=== PATIENT | female | born 1985 | race Caucasian/White ===

== ENCOUNTER 2021-04-29 15:00 | Outpatient (RCR) | payer BC, SELFPAY ==
[2021-04-29 15:10] VITALS: BMI 35.9
[2021-04-29 15:11] VITALS: BMI 35.9
== END 2021-07-15 10:54 | disposition home or self-care (01) ==
LOC: ANHDMC 15:00
PROVIDERS: PCP Family Medicine; Visit Provider Obstetrics & Gynecology
DX: O24.419 Gestational diabetes mellitus in pregnancy, unspecified control (principal); Z3A.00 Weeks of gestation of pregnancy not specified; Z71.3 Dietary counseling and surveillance; Z71.89 Other specified counseling
CPT/HCPCS: 97802; G0108

== ENCOUNTER 2021-06-07 21:32 | Observation (INO) | payer BC, SELFPAY ==
[2021-06-07 21:36] VITALS: BP 137/79; PULSE 93; RESP 20; TEMP 36.2; O2SAT 97
--- NOTE | 2021-06-08 00:26 | ED.GENADULT ---
HPI - General Adult General Chief complaint: Unspecified Stated complaint: hemrrhoid? Time Seen by Provider: 06/07/21 23:53 History of Present Illness HPI narrative: Patient a 35-year-old female presents the emergency department with chief complaint of hemorrhoidal pain. Patient reports she is 36 weeks and having pain and a palpable hemorrhoid present in her rectal area. Patient states that it is tender to touch reports has been using topical creams and pads as well as salt water baths and sitz bath's. The patient states that she attempted to place a hemorrhoid suppository and was unable to pass the suppository. Patient states he is also been having abdominal cramping and abdominal pain. Related Data Allergies Allergy/AdvReac Type Severity Reaction Status Date / Time No Known Allergies Allergy Verified 06/07/21 21:39 Review of Systems Review of Systems: A 10 system review of systems was completed on the patient and is negative except for what is stated in the HPI. Nursing and ancillary documentation was reviewed. [facility] Social History Social History Spiritual care concerns: No Exam Narrative: GENERAL: Well-appearing, well-nourished, and in no acute distress. HEAD: Normocephalic, atraumatic. EYES: PERRLA and EOMI. ENT: Nares clear, no rhinorrhea or epistaxis. Mucous membranes moist. NECK: Supple. CHEST: Clear to auscultation. No respiratory distress. HEART: Regular rate and rhythm. No murmur heard. Normal peripheral pulses. ABDOMEN: Soft, nontender, nondistended, normal active bowel sounds. : There is a large external hemorrhoid present. It is not thrombosed at this time EXTREMITIES: Normal range of motion. No edema. SKIN: Warm, dry, no rash. NEURO: No focal deficits. Alert and oriented x3. PSYCH: Normal mood and affect. Course Vital Signs Vital signs: Vital Signs Temperature 36.2 C L 06/07/21 21:36 Pulse Rate 93 06/07/21 21:36 Respiratory Rate 20 06/07/21 21:36 Blood Pressure 137/79 06/07/21 21:36 Pulse Oximetry 97 06/07/21 21:36 Temperature 36.2 C L 06/07/21 21:36 Pulse Rate 93 06/07/21 21:36 Respiratory Rate 20 06/07/21 21:36 Blood Pressure 137/79 06/07/21 21:36 Pulse Oximetry 97 06/07/21 21:36 Medical Decision Making Vital Signs Vital Signs: Vital Signs Temperature 36.2 C L 06/07/21 21:36 Pulse Rate 93 06/07/21 21:36 Respiratory Rate 20 06/07/21 21:36 Blood Pressure 137/79 06/07/21 21:36 Pulse Oximetry 97 06/07/21 21:36 Temperature 36.2 C L 06/07/21 21:36 Pulse Rate 93 06/07/21 21:36 Respiratory Rate 20 06/07/21 21:36 Blood Pressure 137/79 06/07/21 21:36 Pulse Oximetry 97 06/07/21 21:36 Discharge Plan Discharge Clinical Impression: External hemorrhoid Patient Disposition: Home, Self-Care Condition: Stable Instructions: Antibiotic Form, Hemorrhoids (ED) Prescriptions: New Proctofoam HC 1-1 % foam 1 applic RECTAL QID PRN (Reason: hemorrhoids) Qty: 10 RF: 0 Follow-up/Referrals: Fernandez Hollins MD [Physician] - Sensintaffar,MD Osman [Primary Care Provider] - Time of Disposition: 00:29
[2021-06-08 00:47] VITALS: BP 99/60; PULSE 74; RESP 16; O2SAT 97
[2021-06-08 01:00] VITALS: BP 118/62; PULSE 74
--- NOTE | 2021-06-08 01:16 | OBADM ---
This patient, Hanna Salvador, admitted to the OB room OB Post 117 at 0046 for observation. Patient/family oriented to hospital policies and general routines including ID bracelet, bed and alarms, visiting hours, pain management, procedures, bathroom and other care routines, personal items, smoking policy, room service/diet, and visiting hours. Patient/Family are encouraged to report perceived risks to care and to ask questions if they do not understand what they are told or what they should do.
[2021-06-08 01:42] LABS: Add Urine Microscopic? YES; Appearance Urine Cloudy (Clear); Bacteria Urine Trace /hpf; Bilirubin Urine Negative (Negative); Blood Urine Negative (Negative); Color Urine Yellow (Yellow); Glucose Urine UA Negative (Negative); Ketones Urine Negative (Negative); Leukocyte Esterase Ur Negative LEU/UL (Negative); Nitrate Urine Negative (Negative); Protein Urine Negative (Negative); RBC Urine 0-2 /hpf (0-2); Specific Grav Ur 1.019 (1.001-1.035); Urobilinogen Urine Negative mg/dL (<2.0); WBC Urine 0-3 /hpf
--- NOTE | 2021-06-08 01:55 | PC.NURSE ---
Spoke with Dr. Pichardo at 0147 about patient status. Gave Dr. Pichardo update on patient monitor of contractions that can be counted as irritability, soft to palpation, heart tones with baseline of 125 and moderate variability with accels. Informed Dr. Pichardo of patient urine results. Per Dr. Pichardo patient is okay to be discharged and to call office Wednesday morning to make an appointment and to send patient home with a prescription of Tylenol 3 Q6 hours for a total of 8 tablets.
[2021-06-08] MEDS: ACETAMINOPHEN/CODEINE (*CRX) 300/30 MG TABLET 1 TAB PO (02:27)
--- NOTE | 2021-06-08 08:38 | PM.OBTRLD ---
OB - Triage/Final Diagnosis Visit Information Comments/Additional reasons for admission: I have assessed the risk for this patient, Hanna Salvador, and determined that she would benefit from observation care. Evaluation Laboratory results: Laboratory Tests 06/08/21 01:19 Urine Color Yellow Urine Appearance Cloudy H Urine pH 6.0 Ur Specific [place] 1.019 Urine Protein Negative Urine Glucose (UA) Negative Urine Ketones Negative Ur Blood (Man) Negative Urine Nitrate Negative Urine Bilirubin Negative Urine Urobilinogen Negative Leukocyte Esterase Rfl Negative Urine RBC 0-2 Urine WBC 0-3 Urine Bacteria Trace Vital signs: Vital Signs - 24 hr 06/07/21 21:36 06/08/21 00:47 06/08/21 01:00 Temperature 36.2 C L Pulse Rate 93 74 74 Respiratory Rate 20 16 Blood Pressure 137/79 99/60 L 118/62 Pulse Oximetry 97 97 Final Diagnosis (1) External hemorrhoid: Code(s): K64.4 - Residual hemorrhoidal skin tags Status: Acute
== END 2021-06-08 03:05 | disposition home or self-care (01) ==
LOC: ANHED 06-08 00:29 → ANHOBPP 06-08 00:57
PROVIDERS: Admitting Provider Obstetrics & Gynecology; Emergency Provider Emergency Medicine; PCP Family Medicine; Visit Provider Obstetrics & Gynecology
DX: O22.43 Hemorrhoids in pregnancy, third trimester (principal); Z3A.36 36 weeks gestation of pregnancy
CPT/HCPCS: 81001; 99285; A9270; G0378; G0379

== ENCOUNTER 2021-07-01 12:34 | Outpatient (RCR) | payer BC, SELFPAY ==
[2021-05-30 11:03] VITALS: BP 117/79; PULSE 98
[2021-06-03 11:15] VITALS: BP 116/79; PULSE 89
--- NOTE | 2021-06-10 14:20 | PC.NURSE ---
Called Dr. Castellanos with pt status. Variable decelerations noted. Orders received. If BPP and JAZMIN WNL, may D/C home.
[2021-06-10 15:02] VITALS: BP 110/75; PULSE 83
[2021-06-13 12:29] VITALS: BP 113/72; PULSE 108
[2021-06-17 12:44] VITALS: BP 118/74; PULSE 90
[2021-06-17 13:23] LABS: Hematocrit 34.4 % (37.0-47.0); Hemoglobin 11.1 g/dL (12.0-15.0)
[2021-06-17 13:53] LABS: HIV 1/2 Ab P24 Ag Result Negative (Negative)
[2021-06-20 11:13] VITALS: BP 110/75; PULSE 76
[2021-06-24 11:47] VITALS: BP 120/75; PULSE 82
[2021-06-27 11:05] VITALS: BP 128/88; PULSE 92
--- NOTE | ~2021-07-01 | US_ITS ---
EXAMINATION: US OB follow up w BPP DATE: 06/13/2021 12:06 INDICATION: Evaluate well being and estimated weight TECHNIQUE: Real-time transabdominal obstetric ultrasound. FINDINGS: Comparison to 06/10/2021 and 06/06/2021 There is a single living fetus in vertex presentation. The placenta is fundal without placenta previ a. cardiac activity and movement is noted with a heart rate of 119 beats per minute. T he amniotic fluid volume is normal. JAZMIN measures 19.7 cm. The following biometric data were obtained: BPD: 90mm corresponds to gestational age 36 weeks 3 days. Head circumference: 323mm corresponds to gestational age 36 weeks 3 days. Abdominal circumference: 332mm corresponds to gestational age 37 weeks 1 days. Femur length: 69mm corresponds to gestational age 35 weeks 4 days. Estimated weight: 2971grams +/- 45grams which is 57th percentile when estimated date of confine ment 07/08/2021 used.] BIOPHYSICAL PROFILE breathin out of 2. movement: 2 out of 2. tone: 2 out of 2. Amniotic fluid pocket: 2 out of 2. Biophysical profile score: 8 out of 8. IMPRESSION: 1. Single living intrauterine in vertex presentation with an estimated gestational age of 36 weeks 3 days with EDC of 07/08/2021. 2. Estimated weight 2971 g plus/-445 (57th percentile). 3: Biophysical profile score of 06/01. Reviewed, dictated and finalized at location A. IMPRESSION: 1. Single living intrauterine in vertex presentation with an estimat ed gestational age of 36 weeks 3 days with EDC of 07/08/2021. 2. Estimated weight 2971 g plus/-445 (57th percentile). 3: Biophysical profile score of 06/01.
--- NOTE | ~2021-07-01 | US_ITS ---
EXAMINATION: US OB BPP wo non-stress DATE: 05/30/2021 11:23 INDICATION: Gestational diabetes, third trimester TECHNIQUE: Real-time pelvic ultrasound was performed. The interpreting radiologist was not present fo r the study. COMPARISON: None. FINDINGS: There is a single living fetus in vertex presentation. The placenta is anterior. heart rate is 139 beats per minute (bpm). Biophysical profile performed by the technologist: breathing (30 sec sustained breathing in 30 minutes): 2 out of 2 movement (3 gross body movements in 30 minutes): 2 out of 2 tone (one episode of xdpcbde-ryhoxxarj-hbkngfa limb movement): 2 out of 2 Amniotic fluid pocket (2 cm): 2 out of 2 Total score: 8 out of 8 IMPRESSION: 1. Single living fetus in vertex presentation. 2. Biophysical profile 8 out of 8. Reviewed, dictated and finalized at location A.
--- NOTE | ~2021-07-01 | US_ITS ---
EXAMINATION: US OB limited w BPP DATE: 06/10/2021 14:56 INDICATION: cardiac decelerations during third trimester of . TECHNIQUE: Real-time pelvic ultrasound was performed. The interpreting radiologist was not present fo r the study. COMPARISON: 06/06/2021 FINDINGS: There is a single living fetus in vertex presentation. The placenta is anterior and not low-lying. F etal heart rate is 129 beats per minute (bpm). Normal amniotic fluid index of 21.0 cm (5th%-95%: 7.7- 84.9 cm at 36 weeks estimated gestational age). Biophysical profile performed by the technologist: breathing (30 sec sustained breathing in 30 minutes): 2 out of 2 movement (3 gross body movements in 30 minutes): 2 out of 2 tone (one episode of vzyjcgw-qtfligofq-zxudjfp limb movement): 2 out of 2 Amniotic fluid pocket (2 cm): 2 out of 2 Total score: 8 out of 8 IMPRESSION: 1. Single living fetus in vertex presentation with heart rate of 129 bpm. 2. Biophysical profile 8 out of 8. 3. Normal amniotic fluid index of 21.0 cm. Reviewed, dictated and finalized at location A.
--- NOTE | ~2021-07-01 | US_ITS ---
EXAMINATION: US OB follow up w BPP DATE: 06/27/2021 11:56 INDICATION: Gestational diabetes, third trimester TECHNIQUE: Real-time pelvic ultrasound was performed. The interpreting radiologist was not present fo r the study. COMPARISON: 06/20/2021 FINDINGS: There is a single living fetus in vertex presentation. The placenta is anterior. heart rate is 138 beats per minute (bpm). The amniotic fluid index is 14.9 cm. Biophysical profile performed by the technologist: breathing (30 sec sustained breathing in 30 minutes): 2 out of 2 movement (3 gross body movements in 30 minutes): 2 out of 2 tone (one episode of lqzeyxq-pvchpieez-iflcyyo limb movement): 2 out of 2 Amniotic fluid pocket (2 cm): 2 out of 2 Total score: 8 out of 8 The following biometric data were obtained: Biparietal diameter (BPD): 9.2 cm; head circumference (HC): 34.1 cm; abdominal circumference (AC): 7. 3 cm; femur length (FL): 4.5 cm. These measurements are concordant. Estimated weight is 3967 g +/- 595 g, which correlates with the 94th percentile when 07/08/2021 is used as estimated date of delivery. As single measurements, these parameters are each equal to the following estimated gestational ages w ith ranges of +/- 2 standard deviations: BPD: 37 weeks 4 days ( 34 weeks 3 days - 40 weeks 6 days). HC: 39 weeks 3 days ( 36 weeks 5 days - 42 weeks 0 days). AC: 41 weeks 2 days ( 38 weeks 2 days - 44 weeks 2 days). FL: 38 weeks 4 days ( 35 weeks 3 days - 41 weeks 5 days). estimated gestational age based solely on measurements from this exam is 39 weeks 2 days +/- 2 weeks 5 days. IMPRESSION: 1. Single living fetus in vertex presentation. 2. Biophysical profile 8 out of 8. 3. Estimated weight is 3967 g +/- 595 g, which correlates with the 94th percentile when 07/08/20 21 is used as estimated date of delivery. 4. Normal amniotic fluid index. Reviewed, dictated and finalized at location A. IMPRESSION: 1. Single living fetus in vertex presentation. 2. Biophysical profile 8 out of 8. 3. Estimated weight is 3967 g +/- 595 g, which correlates with the 94th p ercentile when 07/08/2021 is used as estimated date of delivery. 4. Normal amniotic fluid index.
--- NOTE | ~2021-07-01 | US_ITS ---
EXAMINATION: US OB follow up w BPP EXAM DATE: 06/20/2021 11:34 INDICATION: Growth scan and BPP. Gestational diabetes. 3rd trimester. TECHNIQUE: Pelvic obstetrical transabdominal sonogram was performed by a technologist. There are mu ltiple grayscale and Doppler images available for interpretation. Comparison is made to prior examina tion from 06/15/2021. FINDINGS: There is a single fetus identified in vertex presentation with a heart rate of 130 beats pe r minute. The placenta is located in the anterior position. There is no sonographic evidence of retr oplacental hemorrhage identified. The amniotic fluid index is 15.2 centimeters, which is normal. BIOMETRIC DATA: Biparietal diameter (BPD): 8.7 cm --------------> 35 weeks 0 days. Head circumference (HC): 30.5 cm ---------------> 33 weeks 6 days. Abdominal circumference (AC): 35.4 cm ---------> 39 weeks 2 days. Femur length (FL): 7.3 cm ------------------------> 37 weeks 4 days. These measurements are discordant, with elevated FL/HC ratio and decreased HC/AC ratio. HC/AC ratio is 0.86 (The 5th -- 95th percentile range is 0.92-1.07. Estimated weight is 3292 g +/- 494 g. This is the 67th percentile when the currently reported clinical gestation age 37 weeks 3 days, clinical estimated date of delivery (SKYLAR-OPE) 07/08/2021 is us ed. estimated gestational age based on measurements from this exam is 36 weeks 3 days, with an estimated date of delivery (SKYLAR-AUA) 07/15. BIOPHYSICAL PROFILE (performed by the technologist) breathing (30 sec sustained breathing in 30 minutes): 2 out of 2 movement (3 gross body movements in 30 minutes): 2 out of 2 tone (one episode of qknpkyx-zbjxwtori-dbbueaj limb movement): 2 out of 2 Amniotic fluid pocket (2 cm): 2 out of 2 Total score: 8 out of 8 IMPRESSION: 1. Single fetus with heart rate of 130 bpm. 2. Normal biophysical profile score of 8 out of 8. 3. Normal amniotic fluid index 15 cm. 4. Decreased HC/AC and increased FL/HC ratios. Please note that on prior study last week the head circumference measurement was 32.3 cm, and the bip arietal diameter was 9.0 cm, both larger than on this examination. Could be that there was some varia tion in position or difficulties in obtaining accurate head measurement on this examination. Reviewed, dictated and finalized at location A. IMPRESSION: 1. Single fetus with heart rate of 130 bpm. 2. Normal biophysical profile score of 8 out of 8. 3. Normal amniotic fluid index 15 cm. 4. Decreased HC/AC and increased FL/HC ratios. Please note that on prior study last week the head circumference measurement wa s 32.3 cm, and the biparietal diameter was 9.0 cm, both larger than on this exa mination. Could be that there was some variation in position or difficulties in obtaining accurate head measurement on this examination.
--- NOTE | ~2021-07-01 | US_ITS ---
EXAMINATION: US OB follow up w BPP DATE: 06/06/2021 11:57 INDICATION: Gestational diabetes. Third trimester. TECHNIQUE: Real-time ultrasound of the pelvis was performed. COMPARISON: ultrasound 05/30/21 FINDINGS: There is a single living fetus in vertex presentation. The placenta is anterior, 7.5 cm from the cer vix. heart rate is 136 beats per minute (bpm). The amniotic fluid index is 15.8 cm, which is no rmal. The following biometric data were obtained: Biparietal diameter (BPD): 8.8 cm; head circumference (HC): 33.0 cm; abdominal circumference (AC): 34 .4 cm; femur length (FL): 7.0 cm. These measurements are concordant. Estimated weight is 3175 g +/- 476 g, which correlates with 92nd percentile when 07/08/21 is use d as estimated date of delivery. As single measurements, these parameters are each equal to the following estimated gestational ages: BPD: 35 weeks 5 days. HC: 37 weeks 4 days. AC: 38 weeks 2 days. FL: 35 weeks 5 days. estimated gestational age based solely on measurements from this exam is 36 weeks 6 days +/- 2 weeks 4 days. Biophysical profile performed by the technologist: breathing (30 sec sustained breathing in 30 minutes): 2 out of 2 movement (3 gross body movements in 30 minutes): 2 out of 2 tone (one episode of hmxymhu-drlxtdxsk-mxiuylc limb movement): 2 out of 2 Amniotic fluid pocket (2 cm): 2 out of 2 Total score: 8 out of 8 IMPRESSION: 1. Single living fetus in vertex presentation. 2. Large for gestational age. Estimated weight is 3175 g +/- 476 g, which correlates with 92nd percentile when 07/08/21 is used as estimated date of delivery. 3. Biophysical profile 8 out of 8. Reviewed, dictated and finalized at location A. IMPRESSION: 1. Single living fetus in vertex presentation. 2. Large for gestational age. Estimated weight is 3175 g +/- 476 g, whic h correlates with 92nd percentile when 07/08/21 is used as estimated date of del huy. 3. Biophysical profile 8 out of 8.
[2021-07-01 13:15] VITALS: BP 113/72; PULSE 92
== END 2021-07-28 07:42 | disposition home or self-care (01) ==
LOC: ANHOBOP 12:34
PROVIDERS: PCP Family Medicine; Visit Provider Obstetrics & Gynecology
DX: O24.419 Gestational diabetes mellitus in pregnancy, unspecified control (principal); Z11.4 Encounter for screening for human immunodeficiency virus [HIV]; Z3A.34 34 weeks gestation of pregnancy; Z3A.35 35 weeks gestation of pregnancy; Z3A.36 36 weeks gestation of pregnancy; Z3A.37 37 weeks gestation of pregnancy; Z3A.38 38 weeks gestation of pregnancy; Z3A.39 39 weeks gestation of pregnancy
CPT/HCPCS: 36415; 59025; 76815; 76816; 76819; 85014; 85018; 86703; G0432

== ENCOUNTER 2021-07-03 16:00 | Inpatient (IN) | payer BC, SELFPAY ==
[2021-07-03] VITALS (19 sets, daily range): BP systolic 99–144; BP diastolic 42–92; PULSE 76–164; RESP 18; TEMP 36.6–36.9; BMI 34.9
--- OUTSIDE RECORDS SUMMARY | 2021-07-03 16:05 | XMS_ITS | Encounter Summary ---
:1985 Author Reason for Visit return OB visit Assessment and Plan 1. Routine care ? hemoglobin + hematocrit, b lood ? HIV (1+2) Ab screen, serum Discussion Note: None recorded.Patient educational handouts: No information available. Plan of Care Reminders Provider Appointments None recorded. ? ? Lab Hemoglobin + [facility] Hematocrit, Blood 06/17/2021 [facility] (Lab) ? HIV (1+2) Ab [facility] Screen, Serum 06/17/2021 [facility] (Lab) Referral None recorded. ? ? Procedures None recorded. ? ? Surgeries None recorded. ? ? Imaging None recorded. ? ? Medications Name Start Date ? ? Alcohol Prep Pads ? USE TO TEST BLOOD SUGAR FOUR TIMES DAILY DIRECTED Contour Next Glucose Meter kit ? Contour Next Meter ? USE TO TEST BLOOD SUGAR FOUR TIMES DAILY DIRECTED Contour Next Test Strips ? USE 1 TEST STRIP TO TEST BLOOD SUGAR FOUR TIMES DAILY DIRECTED folic acid 1 mg tablet ? TAKE ONE TABLET BY MOUTH DAILY metformin ER 500 mg tablet,extended release 24 hr ? TAKE 1 TABLET BY MOUTH EVERY DAY WITH DINNER FOR 1 WE EK Microlet Lancet ? USE 1 LANCET TO TEST BLOOD SUGAR FOUR TIMES DAILY DIR
--- OUTSIDE RECORDS SUMMARY | 2021-07-03 16:05 | XMS_ITS ---
:1985 Author Care Team Providers Name Role Phone Jersey Castellanos Primary Care Provider Unavailable Allergies Code Code System Name Reaction Severity Status Onset NKDA ? Medications Name Status Start Date Stop Date ? ? acetaminophen 300 mg-codeine 30 mg tablet Completed ? 06/24/2021 TAKE 1 TABLET BY MOUTH EVERY 6 HOURS NEEDED FOR PAIN Alcohol Prep Pads Active ? Not available USE TO TEST BLOOD SUGAR FOUR TIMES DAILY DIRECTED Amethia 0.15 mg-30 mcg (84)/10 mcg(7) tablets,3 month dose pack Unknown ? Not available Take 1 tablet every day by oral route. amoxicillin 500 mg capsule Completed ? 06/24 amoxicillin 875 mg-potassium Completed ? 08/2019 clavulanate 125 mg tablet azithromycin 500 mg tablet Unknown ? Not a vailable TK ONE T PO QD FOR 5 DAYS biotin Unknown 08/14/2014 Not available buspirone 5 mg tablet Completed ? 08/01/2019 cephalexin 500 mg capsule Completed ? 2020 TAKE 1 CAPSULE BY MOUTH THREE TIMES DAILY FOR 3 DAYS Contour Next Glucose Meter kit Active ? N ot available Contour Next Meter Active ? Not available USE TO TEST BLOOD SUGAR FOUR TIMES DAILY DIRECTED Contour Next Test Strips Active ? Not aure ilable cyclobenzaprine 10 mg tablet Completed ? diazepam 5 mg tablet Completed ? 08/25/2019 PRN doxycycline hyclate 100 mg tablet Active ? Not available TK 1 T PO BID FOR 5 DAYS estradiol 1 mg tablet Active ? Not
--- OUTSIDE RECORDS SUMMARY | 2021-07-03 16:05 | XMS_ITS | Encounter Summary ---
:1985 Author Reason for Visit return OB visit Assessment and Plan 1. Gestational diabetes mellitus Discussion Note: None recorded.Patient educational handouts: No information available. Plan of Care Reminders Provider Appointments None ? ? recorded. Lab None ? ? recorded. Referral None ? ? recorded. Procedures None ? ? recorded. Surgeries None ? ? recorded. Imaging None ? ? recorded. Medications Name Start Date ? ? Alcohol [...] TEST BLOOD SUGAR FOUR TIMES DAILY DIRECTED montelukast 10 mg tablet ? TAKE 1 TABLET BY MOUTH EVERY EVENING Prescription - Prior Authorization Request ? USE 1 TEST STRIP TO TEST BLOOD SUGAR FOUR TIMES DAILY DIRECTED Proctofoam HC 1 %-1 % ? USE 1 APPLICATION RECTALLY FOUR TIMES DAILY NEEDED FOR HEMORRHOIDS Ventolin HFA 90 mcg/actuation aerosol inhaler ?
--- OUTSIDE RECORDS SUMMARY | 2021-07-03 16:05 | XMS_ITS | Encounter Summary ---
:1985 Author Reason for Visit return OB visit Assessment and Plan 1. Advanced maternal age Discussion Note: None recorded.Patient educational handouts: No [...]
--- OUTSIDE RECORDS SUMMARY | 2021-07-03 16:06 | XMS_ITS | Encounter Summary ---
:1985 Author Reason for Visit return OB visit Assessment and Plan 1. Routine care ? glucose tolerance test, ge stational, 1-hour - nonfasting OB ? hemoglobin + hematocrit, b lood Discussion Note: None recorded.Patient educational handouts: No information available. Plan of Care Reminders Provider Appointments None recorded. ? ? Lab Glucose [place] [facility] T[facility], [facility] (Lab) Gestational, 1-Hour ? Hemoglobin + [facility], Blood 04/02/[facility]21 [facility] (Lab) Referral None recorded. ? ? Procedures [...] MOUTH EVERY DAY WITH DINNER FOR 1 TYSHAWN GONZALEZ
--- OUTSIDE RECORDS SUMMARY | 2021-07-03 16:06 | XMS_ITS ---
:1985 Author Care Team Providers Name Role Phone YUE RAMIREZ MD Primary Care Provider [phone] Allergies Code Code System Name Reaction Severity Status Onset NKDA ? Medications Name Status Start Date Stop Date ? ? acetaminophen 300 mg-codeine 30 mg tablet Active ? Not available amoxicillin 875 mg-potassium clavulanate Active ? Not available 125 mg tablet buspirone 5 mg tablet Active ? Not availa ble cyclobenzaprine 10 mg tablet Active ? Not available diazepam 5 mg tablet Active ? Not availab le doxycycline hyclate 100 mg tablet Active ? Not available TK 1 T PO BID FOR 5 DAYS estradiol 1 mg tablet Active ? Not availa ble fluconazole 150 mg tablet Active ? Not av ailable TAKE 1 TABLET BY MOUTH BIWEEKLY fluticasone propionate 50 mcg/actuation Active ? Not available nasal spray,suspension folic acid 1 mg tablet Active ? Not avail able TAKE ONE TABLET BY MOUTH DAILY gabapentin 300 mg capsule Active ? Not av ailable hydrocodone 5 mg-acetaminophen 325 mg Active ? Not available tablet ibuprofen 800 mg tablet Active ? Not avai lable letrozole 2.5 mg tablet Active ? Not avai lable TAKE 4 TABLETS BY MOUTH ON CYCLE DAYS 3-7 lorazepam 1 mg tablet Active ? Not availa ble Lutera (28) 0.1 mg-20 mcg tablet Active ? Not available Medrol (Connor) 4 mg tablets in a dose pack Active ? Not available
--- OUTSIDE RECORDS SUMMARY | 2021-07-03 16:06 | XMS_ITS | Encounter Summary ---
:1985 Author Reason for Visit return OB visit Assessment and Plan 1. Blood glucose abnormal ? glucose tolerance test, po st-100G, 3-hour - 3 gtt 100g Discussion Note: None recorded.Patient educational handouts: No information available. Plan of Care Reminders Provider Appointments None ? ? recorded. Lab Glucose [place] [facility] Tolerance Test, [facility]/2021 [facility] (Lab) Post-100G, 3-Hour Referral None ? ? recorded. Procedures None [...]
--- OUTSIDE RECORDS SUMMARY | 2021-07-03 16:06 | XMS_ITS | Encounter Summary ---
:1985 Author Reason for Visit return OB visit Assessment and Plan 1. Advanced maternal age ? streptococcus group B, cul ture, unspecified specimen Discussion Note: None recorded.Patient educational handouts: No information available. Plan of Care Reminders Provider Appointments None recorded. ? ? Lab Streptococcus [facility] Group B, Culture, 06/09/2021 Hospital (Lab) Unspecified Specimen Referral None recorded. ? ? Procedures None [...]
--- OUTSIDE RECORDS SUMMARY | 2021-07-03 16:06 | XMS_ITS ---
:1985 Author Care Team Providers Name Role Phone YUE RAMIREZ MD Primary Care Provider [phone] Allergies Code Code System Name Reaction Severity Status Onset NKDA ? Medications Name Status Start Date Stop Date ? ? acetaminophen 300 mg-codeine 30 mg Completed ? 12/05/2018 tablet Amethia 0.15 mg-30 mcg (84)/10 mcg(7) tablets,3 month dose pack Unknown ? Not available Take 1 tablet every day by oral route. amoxicillin 875 mg-potassium Completed ? 08/2019 clavulanate 125 mg tablet azithromycin 500 mg tablet Unknown ? Not a vailable TK ONE T PO QD FOR 5 DAYS biotin Unknown ? Not available buspirone 5 mg tablet Completed ? 08/01/2019 cyclobenzaprine 10 mg tablet Completed ? diazepam 5 mg tablet Completed ? 08/25/2019 PRN doxycycline hyclate 100 mg tablet Completed ? 12/09/2020 TK 1 T PO BID FOR 5 DAYS estradiol 1 mg tablet Completed ? 12/09/2020 fluconazole 150 mg tablet Completed ? 2017 TAKE 1 TABLET BY MOUTH BIWEEKLY fluticasone propionate 50 mcg/actuation Completed ? 12/05/2018 nasal spray,suspension folic acid 1 mg tablet Active ? Not avail able TAKE ONE TABLET BY MOUTH DAILY gabapentin 300 mg capsule Completed ? 2018 hydrocodone 10 mg-chlorpheniramine 8 mg/5 mL oral susp exten d.rel 12hr Unknown ? Not available TK 5 ML PO Q 12 H PRN hydrocodone 5 mg-acetaminophen 325 mg Completed ?
[2021-07-03] MEDS: DINOPROSTONE 10 MG VAG INSERT VAGINAL (17:10)
[2021-07-03 17:13] LABS: Basophils Percent Auto 0.4 % (0.2-1.2); Eosinophils Absolute Auto 0.1 K/mm3 (0-0.3); Eosinophils Percent Auto 0.6 % (0-4.4); Hematocrit 37.2 % (37.0-47.0); Hemoglobin 12.5 g/dL (12.0-15.0); Immature Granulocyte Absolute 0.02 K/mm3 (0.00-0.031); Immature Granulocyte Percent A 0.2 % (0-0.5); Lymphocytes Absolute Auto 2.01 K/mm3 (0.9-3.2); Lymphocytes Percent Auto 24.8 % (18.3-44.2); Mean Corpuscular HGB Conc 33.6 g/dl (32-36); Mean Corpuscular Hemoglobin 28.6 pg (26-34); Mean Corpuscular Volume 85.1 fl (80-100); Mean Platelet Volume 11.4 fl (7.4-10.4); Monocytes Absolute Auto 0.6 K/mm3 (0.1-0.6); Neutrophils Absolute Auto 5.4 K/mm3 (1.3-6.7); Platelet Count Result 229 k/mm3 (150-375); Red Blood Count 4.37 M/mm3 (4.2-5.4); White Blood Count 8.1 K/mm3 (4.5-10.0)
[2021-07-03 17:35] LABS: Glucose Point of Care 103 mg/dl (65-105)
--- NOTE | 2021-07-03 18:18 | WPDANESEPP ---
Anes - Eval Pre Procedure Procedure: labor epidural Date/Time: 07/03/21 18:18 Surgeon: jaja Preop Diagnosis: pain during labor Pre Op Diagnosis: induction of labor Patient Data Age: 35 Gender: F Height: 1.59 m Weight: 88 kg Last Vital Signs Temp 36.8 C 07/03/21 16:37 Pulse 79 07/03/21 18:01 BP 99/62 L 07/03/21 18:01 Allergies Allergy/AdvReac Type Severity Reaction Status Date / Time No Known Allergies Allergy Verified 06/27/21 11:35 Home Medications Medication Instructions Recorded Confirmed Type PNV cmb#95-ferrous fumarate-FA 1 tablet PO DAILY 06/10/21 06/27/21 History [ Multivitamins] diphenhydramine HCl [Unisom 50 mg PO HS 06/10/21 06/27/21 History SleepGels] folic acid 1 mg PO DAILY 06/10/21 06/27/21 History metformin 500 mg PO DAILY 06/10/21 06/27/21 History montelukast 10 mg PO DAILY 06/10/21 07/03/21 History pyridoxine (vitamin B6) 100 mg PO DAILY 06/10/21 06/27/21 History albuterol sulfate 90 mcg/actuation 1 puff INHALATION Q4H PRN 06/11/21 07/03/21 History aerosol inhaler docusate sodium 100 mg capsule 100 mg PO BID 06/12/21 07/03/21 History Mago7 1 tab-cap PO HS 06/13/21 07/03/21 History cetirizine [Zyrtec] 10 mg PO HS 06/13/21 07/03/21 History docosahexaenoic acid 400 mg PO HS 06/13/21 07/03/21 History Laboratory Tests 07/03/21 07/03/21 07/03/21 16:54 17:01 17:01 WBC 8.1 K/mm3 K/mm3 (4.5-10.0) RBC 4.37 M/mm3 M/mm3 (4.2-5.4) Hgb 12.5 g/dL g/dL (12.0-15.0) Hct 37.2 % % (37.0-47.0) MCV 85.1 fl fl (80-100) MCH 28.6 pg pg (26-34) MCHC 33.6 g/dl g/dl (32-36) RDW 13.0 % % (11.5-14.5) Plt Count 229 k/mm3 k/mm3 (150-375) MPV 11.4 fl H fl (7.4-10.4) Immature Gran % (Auto) 0.2 % % (0-0.5) Neut % (Auto) 67.0 % % (45.5-73.1) Lymph % (Auto) 24.8 % % (18.3-44.2) Runnels % (Auto) 7.0 % % (2.6-8.5) Eos % (Auto) 0.6 % % (0-4.4) Baso % (Auto) 0.4 % % (0.2-1.2) Lymph # (Auto) 2.01 K/mm3 K/mm3 (0.9-3.2) R[place]els # (Auto) 0.6 K/mm3 K/mm3 (0.1-0.6) Eos # (Auto) 0.1 K/mm3 K/mm3 (0-0.3) Baso # (Auto) 0.0 K/mm3 K/mm3 (0.0-0.1) Abs Immat Gran (auto) 0.02 K/mm3 K/mm3 (0.00-0.031) Absolute Neuts (auto) 5.4 K/mm3 K/mm3 (1.3-6.7) Absolute Nucleated RBC 0.0 K/mm3 K/mm3 (0.0-0.012) Nucleated RBC % 0.0 % % (0.0-0.2) POC Capillary Glucose 103 mg/dl mg/dl (65-105) RPR Pending Patient hx anesthesia problems: none Family hx anesthesia problems: none [facility] Past Medical History Medical History (Updated 07/03/21 @ 18:19 by Tayler Joy CRNA) Asthma Gestational diabetes Kidney stones Malignant melanoma of right ear Surgical History Surgical History History of melanoma excision April 2021 S/P D&C (status post dilation and curettage) S/P tonsillectomy and adenoidectomy Status post skin graft Family History Family History Father Alzheimer disease FH: CABG (coronary artery bypass surgery) Skin cancer Prostate carcinoma Mother Diabetes mellitus Skin cancer Sibling Diabetes mellitus Hypertension Other Patient's father is Social History Social History Smoking status: Never smoker Second hand tobacco smoke exposure: No Alcohol intake: never Substance use: never Additional occupation/education comments: [employer] Spiritual care concerns: No Exam Day of Procedure 07/03/21 18:18
[2021-07-03 19:52] LABS: Glucose Point of Care 87 mg/dl (65-105)
[2021-07-03] MEDS: fentaNYL CITRATE INJ (*CRX) 100 MCG/2 ML VIAL 50 MCG IV PUSH (22:02)
[2021-07-03] MEDS: LACTATED RINGERS 1,000 ML 125 ML IV CONT (22:03)
[2021-07-03] MEDS: fentaNYL CITRATE INJ (*CRX) 100 MCG/2 ML VIAL IV PUSH (23:52)
[2021-07-04] VITALS (124 sets, daily range): BP systolic 90–149; BP diastolic 55–101; PULSE 58–141; RESP 16–18; TEMP 36.3–37.5; O2SAT 78–100
[2021-07-04] MEDS: LACTATED RINGERS 1,000 ML 125 ML IV CONT ×2 (00:18→02:38)
[2021-07-04] MEDS: fentaNYL CITRATE INJ (*CRX) 100 MCG/2 ML VIAL IV PUSH (01:28)
[2021-07-04 04:30] LABS: Glucose Point of Care 121 mg/dl (65-105)
[2021-07-04] MEDS: OXYTOCIN 30 UNITS/NS 500 ML 30 UNITS/500 ML BAG 999 UNITS IV CONT (07:53)
--- NOTE | 2021-07-04 08:11 | PM.OBPRVD ---
OB - Delivery Note Procedure events: Gestational Diabetes Route of delivery: Episiotomy description: None Laceration Description: Vaginal - 2nd Degree Delivery repair: chromic Specimen: Yes Quantitative Blood Loss (ml): 450 Anesthesia type: Epidural Disposition: floor Narrative: Patient prepped and draped in the usual manner for this procedure. Maternal expulsive efforts readily delivered vertex in the anterior shoulder delivered without difficulty. Rest of baby was delivered cord was clamped and cut and placenta delivered spontaneously. Uterus was well contracted with minimal bleeding. Cervix vagina vulva were inspected with second-degree laceration noted. This was of repaired using 2 0 chromic to approximate the vaginal tissue in a running interlocking manner a deep tissue to a prior X made the area and then a subcuticular layer with good approximation of the skin edges. There was minimal bleeding uterus was contracted and baby was doing well. [place] Baby Weeks of gestation at delivery: 39 gender: Female Weight (pounds): 7 Weight (ounces): 7 score one minute: 8 score five minutes: 9
--- NOTE | 2021-07-04 08:13 | WPDHPUPDATE1 ---
History and Physical Update Update Date/Time: 07/04/21 08:13 History and Physical has been reviewed, including an updated exam of the patient. There are NO changes in the patient's condition. Risks, benefits, and alternatives have been discussed and questions answered. Patient agrees to proceed with procedure.
--- NOTE | 2021-07-04 08:13 | WPDOBADMIT ---
Obstetrics - Admit Note Admission Note: record reviewed. No pertinent additions to the history and/or any subsequent changes in the physical findings that are not consistent with the expected course of the were found. Additions to the history and/or subsequent changes in the physical findings follow. None.
[2021-07-04] MEDS: OXYTOCIN 30 UNITS/NS 500 ML 30 UNITS/500 ML BAG 125 UNITS IV CONT (08:31)
[2021-07-04 10:40] LABS: Rapid Plasma Reagin Non-Reactive (NonReactive)
[2021-07-04] MEDS: BENZOCAINE 20% AER SPR (*SP) 56 GM CAN 1 SPRAY TOPICAL (10:47)
[2021-07-04] MEDS: WITCH HAZEL 40 PADS 1 PAD TOPICAL (10:47)
[2021-07-04] MEDS: IBUPROFEN 600 MG TABLET PO ×2 (12:25→19:43)
--- NOTE | 2021-07-04 12:45 | PC.NURSE ---
Mother called out for assist with feeding, reporting infants first two feedings went well. is able to freely thrust tongue past gum ridge and flange both lips. Skin is intact on both nipples, no redness and bruising noted. Reviewed feeding cues, frequencies, duration of feedings, feeding elimination flow sheet, and signs of adequate intake. Demonstrated stimulation techniques to wake for feeding. Assisted with to breast. Reviewed positioning/alignment in football, holding breast in ?C? hold and guided asymmetrical latch on. Discussed rational for each. Infant able to latch correctly. Reviewed signs of a correct latch, effective nursing and suck swallow ratio. nursed eagerly, with steady draws and frequent swallowing noted. Reviewed the difference of effective vs ineffective nursing. Suggested mother stimulate while feeding to increase stimulation, increase intake and to assist with maintaining deep latch. was able to maintain latch without discomfort to mother. Demonstrated how to adjust latch more deeply while feeding if needed. Nipple care reviewed of lanolin after feedings, warm compresses as needed. Instructed mother to call out for RN assistance if she is unable to latch for feeding or she has discomfort with nursing. Instructed feeding should be initiated three hours from start of last feeding or if feeding cues are noted before. Mother voiced understanding of information shared.
--- NOTE | 2021-07-04 14:54 | OBPPTRN ---
1133-Patient transferred to post room #287 via wheelchair. Support person present. Oriented to unit, room, information board, rooming in, admission packet and security measures. Patient verbalizes understanding.
[2021-07-04] MEDS: HYDROcodone/acetaminophen (*CRX) 5-325 MG TABLET 1 TAB PO (21:09)
[2021-07-05 01:00] VITALS: BP 119/84; PULSE 67; RESP 16; TEMP 36.3
[2021-07-05] MEDS: IBUPROFEN 600 MG TABLET PO ×4 (01:52→19:31)
[2021-07-05 04:30] VITALS: BP 109/72; PULSE 87; RESP 18; TEMP 36.4; O2SAT 98
[2021-07-05] MEDS: HYDROcodone/acetaminophen (*CRX) 5-325 MG TABLET 1 TAB PO ×4 (04:43→23:25)
[2021-07-05 04:46] LABS: Hematocrit 27.3 % (37.0-47.0)
[2021-07-05] MEDS: DOCUSATE SODIUM 100 MG CAPSULE PO ×2 (07:22→16:08)
[2021-07-05] MEDS: POLYSACCHARIDE IRON COMPLEX 150 MG CAPSULE PO ×2 (07:22→16:08)
[2021-07-05 07:49] VITALS: BP 112/74; PULSE 83; PULSE 87; RESP 18; TEMP 36.5
--- NOTE | 2021-07-05 07:54 | PM.OBDSVD ---
DS: Admitting Diagnosis Discharge Date 07/05/21 Admitting Diagnosis DS: Discharge Diagnosis Discharge Diagnosis (1) Intrauterine : Code(s): Z34.90 - Encounter for supervision of normal , unspecified, unspecified trimester Status: Acute OB - DS: Summary OB Procedures : None OB Procedures Intrapartum: Spontaneous Vag Delivery OB Procedures: : None Time Spent with Patient Time attestation: Total time spent providing and/or coordinating discharge services: DS: Data Data Completed and Pending Pending studies at discharge: Pending at discharge 07/04/21 07:53 Surgical [PTH] Routine Labs on day of discharge: Labs from last 24 hours 07/05/21 07/03/21 04:27 17:01 Hgb 9.0 L D Hct 27.3 L RPR Non-reactive Discharge Plan Discharge Discharging Clinician: Jersey Castellanos Patient Disposition: Home, Self-Care Activity: as tolerated Diet: as tolerated Discharge Instructions: Education: Mom and Baby Guide Given to: Mother Follow-Up: Call your delivering provider's office for an appointment to be seen in: 4 Weeks Mom and baby should come to the [facility] for the follow-up appointment. Appointment Date/Time: Friday, July 09, 2021 at 10:00 am What to expect at your follow-up visit: Blood Pressure Check Physical Assessment Call [phone] if you are unable to keep your appointment time. BREAST CARE: * Wear a snug supportive bra. * For engorgement discomfort: Breast Feeding: * Apply warm moist washcloths * Express milk as needed to relieve engorgement * Wear loose clothing * For sore nipples: * Identify correct latch-on * Apply warm moist washcloths before and after nursing * Air dry nipples after nursing * May apply Lansinoh cream to nipples EPISIOTOMY/PERINEAL CARE: * Until bleeding stops, use your aleja bottle after urinating * Change your pad frequently throughout the day * You may take sitz baths several times a day (fill your bathtub with warm water and soak for 20 minutes.) Do NOT bathe in the water * No tub baths until seen by your physician - You may shower ACTIVITY: * Rest as much as possible. * Do not exercise or lift anything heavier than your baby (such as laundry or other children.) * Avoid stairs or driving as much as possible. * Do not put anything into the vagina. No douching, tampons, or sexual activity until seen by physician. NOTIFY PHYSICIAN IF YOU HAVE ANY QUESTIONS OR IF ANY OF THE FOLLOWING SYMPTOMS OCCUR: * If your episiotomy becomes red, swollen, or more painful than what you have experienced in the hospital. * If your vaginal bleeding becomes foul smelling. * If your vaginal bleeding becomes more heavy than a period or if your bleeding changes from pink to bright red. However, you may pass an occasional walnut-sized clot once or twice for the first week . * If you experience a sharp, shooting pain in you calves. * If you discover a hard, reddened area on your breast or if you experience flu-like symptoms. DIET: * Eat regular, well-balanced meals. * Drink plenty of fluids daily. If , drink to thirst. Patient Instructions: Antibiotic Form Stand Alone Forms: General Discharge Information Follow-up/Referrals: Jersey Castellanos MD [Physician] - 3 Weeks Discharge Medications: New ibuprofen 600 mg Tablet 600 mg PO Q6H PRN (Reason: Cramping) Qty: 20 RF: 0 hydrocodone-acetaminophen 5-325 mg Tablet 1 tablet PO Q6H Qty: 20 RF: 0 Continued albuterol sulfate [Ventolin HFA] 90 mcg/actuation HFA aerosol inhaler 1 puff inhalation Q4H PRN (Reason: Shortness Of Breath) RF: 0 docusate sodium [Dulcolax Stool Softener (dss)] 100 mg capsule 100 mg PO BID RF: 0 cetirizine [Zyrtec] 10 mg Tablet 10 mg PO HS RF: 0 docosahexaenoic a
--- NOTE | 2021-07-05 13:18 | WPDANLDPN2 ---
Anes-Prog Note L&D Date/Time: 07/05/21 13:18 Comfortable throughout: labor and delivery Neuraxial method: epidural Epidural/Spinal procedure site: clean & non-tender Neuro status: Neuro function grossly intact. Cardiovascular status: normal Respiratory status: normal Airway patency: baseline Mental status: baseline Post-Op hydration status: normal Vital Signs: Last Vital Signs Temp 36.5 C 07/05/21 07:49 Pulse 83 07/05/21 07:49 Resp 18 07/05/21 07:49 BP 112/74 07/05/21 07:49 Pulse Ox 98 07/05/21 04:30 Pain score (VAS): 0 Post-procedural complaints: none Patient feedback: Patient satisfied with anesthetic care.
[2021-07-05] MEDS: WITCH HAZEL 40 PADS 1 PAD TOPICAL (13:38)
[2021-07-05] MEDS: BENZOCAINE 20% AER SPR (*SP) 56 GM CAN 1 SPRAY TOPICAL (13:38)
--- NOTE | 2021-07-05 16:59 | PM.OBDSVD ---
DS: Admitting Diagnosis Discharge Date 07/05/21 Admitting Diagnosis OB - DS: Summary OB Procedures : None OB Procedures Intrapartum: Spontaneous Vag Delivery OB Procedures: : None Time Spent with Patient Time attestation: Total time spent providing and/or coordinating discharge services: DS: Data Data Completed and Pending Pending studies at discharge: Pending at discharge 07/04/21 07:53 Surgical [PTH] Routine Labs on day of discharge: Labs from last 24 hours 07/05/21 04:27 Hgb 9.0 L D Hct 27.3 L Discharge Plan Discharge Discharging Clinician: Jersey Castellanos Patient Disposition: Home, Self-Care Activity: as tolerated Diet: as tolerated Discharge Instructions: Education: Mom and Baby Guide Given to: Mother Follow-Up: Call your delivering provider's office for an appointment to be seen in: 4 Weeks Mom and baby should come to the [facility] for the follow-up appointment. Appointment Date/Time: Friday, July 09, 2021 at 10:00 am What to expect at your follow-up visit: Blood Pressure Check Physical Assessment Call [phone] if you are unable to keep your appointment time. BREAST CARE: * Wear a snug supportive bra. * For engorgement discomfort: Breast Feeding: * Apply warm moist washcloths * Express milk as needed to relieve engorgement * Wear loose clothing * For sore nipples: * Identify correct latch-on * Apply warm moist washcloths before and after nursing * Air dry nipples after nursing * May apply Lansinoh cream to nipples EPISIOTOMY/PERINEAL CARE: * Until bleeding stops, use your laeja bottle after urinating * Change your pad frequently throughout the day * You may take sitz baths several times a day (fill your bathtub with warm water and soak for 20 minutes.) Do NOT bathe in the water * No tub baths until seen by your physician - You may shower ACTIVITY: * Rest as much as possible. * Do not exercise or lift anything heavier than your baby (such as laundry or other children.) * Avoid stairs or driving as much as possible. * Do not put anything into the vagina. No douching, tampons, or sexual activity until seen by physician. NOTIFY PHYSICIAN IF YOU HAVE ANY QUESTIONS OR IF ANY OF THE FOLLOWING SYMPTOMS OCCUR: * If your episiotomy becomes red, swollen, or more painful than what you have experienced in the hospital. * If your vaginal bleeding becomes foul smelling. * If your vaginal bleeding becomes more heavy than a period or if your bleeding changes from pink to bright red. However, you may pass an occasional walnut-sized clot once or twice for the first week . * If you experience a sharp, shooting pain in you calves. * If you discover a hard, reddened area on your breast or if you experience flu-like symptoms. DIET: * Eat regular, well-balanced meals. * Drink plenty of fluids daily. If , drink to thirst. Patient Instructions: Antibiotic Form Stand Alone Forms: General Discharge Information Follow-up/Referrals: Jersey Castellanos MD [Physician] - 3 Weeks Discharge Medications: New ibuprofen 600 mg Tablet 600 mg PO Q6H PRN (Reason: Cramping) Qty: 20 RF: 0 hydrocodone-acetaminophen 5-325 mg Tablet 1 tablet PO Q6H Qty: 20 RF: 0 Continued albuterol sulfate [Ventolin HFA] 90 mcg/actuation HFA aerosol inhaler 1 puff inhalation Q4H PRN (Reason: Shortness Of Breath) RF: 0 docusate sodium [Dulcolax Stool Softener (dss)] 100 mg capsule 100 mg PO BID RF: 0 cetirizine [Zyrtec] 10 mg Tablet 10 mg PO HS RF: 0 docosahexaenoic acid 200 mg Capsule 400 mg PO HS RF: 0 Mago7 1 tab-cap PO HS RF: 0 diphenhydramine HCl [Unisom SleepGels] 50 mg Capsule 50 mg PO HS RF: 0 folic acid 1 mg Tablet 1 mg PO DAILY RF: 0 pyridoxine (vitamin B6) 100 mg
[2021-07-05 19:25] VITALS: BP 105/66; PULSE 74; RESP 16; TEMP 36.5; O2SAT 100
--- NOTE | 2021-07-05 19:25 | PC.NURSE ---
Patient viewed the discharge video Mother & Baby Care, The First Two Weeks online. Patient was given the opportunity and encouraged to ask questions. Patient verbalized understanding of information shared and has been given the mother/baby guide for home reference.
[2021-07-05] MEDS: LANOLIN (LANSINOH) 7.5 GM CREAM 1 APPLIC TOPICAL (19:35)
[2021-07-06] MEDS: IBUPROFEN 600 MG TABLET PO ×2 (02:09→10:43)
[2021-07-06] MEDS: HYDROcodone/acetaminophen (*CRX) 5-325 MG TABLET 1 TAB PO ×3 (02:10→14:03)
[2021-07-06 08:00] VITALS: BP 115/72; PULSE 85; RESP 18; TEMP 36.5
--- NOTE | 2021-07-06 09:00 | PC.NURSE ---
Patient viewed the discharge video Mother & Baby Care, The First Two Weeks . Patient was given the opportunity and encouraged to ask questions. Patient verbalized understanding of information shared and has been given the mother/baby guide for home reference.
[2021-07-06] MEDS: POLYSACCHARIDE IRON COMPLEX 150 MG CAPSULE PO (10:42)
[2021-07-06] MEDS: DOCUSATE SODIUM 100 MG CAPSULE PO (10:42)
--- NOTE | 2021-07-06 12:44 | PC.NURSE ---
Self care and infant care discharge instructions given including follow up visit date and time. Pt. verbalized understanding. No questions or concerns voiced. Very pleasant and cooperative. at side.
[2021-07-09 10:03] VITALS: BP 130/81; PULSE 78; RESP 16; TEMP 36.8; O2SAT 100
--- NOTE | 2021-07-09 11:00 | PC.NURSE ---
RN requested discussion on pump usage after follow up. Mother has a spectra 2, instructions given on breast pump care and usage, pumping schedule, nipple care, and collection and storage of breast milk. Encouraged [id number], breast massage and manual expression to stimulate supply. Pumping log provided and reviewed. Assessed patient for correct flange size, placement and draw. Patient verbalizes and demonstrates understanding of instructions. Suggested mother pump to soften before feeding when firm/engorged and comfort pump other breasts as needed. Observed mother is able to independently latch infant with appropriate positioning/alignment. She denies any nipple discomfort. eagerly latched nursing effectively with long draw and freq. swallowing noted.
== END 2021-07-06 14:12 | disposition home or self-care (01) | DRG 807 ==
LOC: ANHLDR 16:02 → ANHOB2 07-04 12:17
PROVIDERS: Admitting Provider Obstetrics & Gynecology; PCP Family Medicine; Visit Provider Obstetrics & Gynecology
DX: O24.429 Gestational diabetes mellitus in childbirth, unspecified control (principal); Z37.0 Single live birth; Z3A.39 39 weeks gestation of pregnancy; O36.8330 Maternal care for abnormalities of the fetal heart rate or rhythm, third trimester, not applicable or unspecified; O77.0 Labor and delivery complicated by meconium in amniotic fluid; O70.1 Second degree perineal laceration during delivery; O99.52 Diseases of the respiratory system complicating childbirth; J45.909 Unspecified asthma, uncomplicated; O99.02 Anemia complicating childbirth; D64.9 Anemia, unspecified; O99.344 Other mental disorders complicating childbirth; F41.9 Anxiety disorder, unspecified; F32.9 Major depressive disorder, single episode, unspecified
CPT/HCPCS: 36415; 82948; 85014; 85018; 85025; 86592; 86850; 86900; 86901; 88307; A9270; J2590; J3010; J7120

== ENCOUNTER 2021-12-11 13:41 | Outpatient (RCR) | payer BC, SELFPAY ==
--- NOTE | 2021-12-11 15:09 | PC.NURSE ---
1300 - 1445 In 1300 out 1445 Consult to for nipple pain and decreased milk supply in the left breast. History: Mother delivered infant at [place] on 07/04/21 at 39 weeks gestation. Induction with cervidil that started labor and the delivery was very quick and the nurse almost delivered baby . Baby was placed skin to skin and breastfed within the first hour effectively. She states a history of PCOS, seasonal allergies, GDM, anxiety and depression. She takes metformin for PCOS. Infant is close to five months old and is well-nourished, alert and very actively pleasant. Mother reports pain like knives with on the right breast my dominate side . Left breast produces 1/2 oz and right produces 5 oz. Mother puts infant to the left breast for short periods of times but mostly feeds on the right side related to milk production. The sharp pain is with infant pulling at the breast and nipple to look at distractions. Baby goes to grandparents home occasionally and mom states baby is fed too much milk and pureed fruit. She denies drugs and alcohol use. Mother became tearful when asked about anxiety and depression. Discussed medication using Lactmed as they pertain to . Observations: latches well and pushes back onto the nipple at times. Encouraged mother to breastfeed in an area free of distractions and work with getting baby focused on feeding with latch nice and deep. Slight position change with to improve latch with face closer to the breast at a chin in the breast angle. Mom confirms that pain in the nipples is only with infant pulling on the nipple. Mom denies sharp or knife pain with outside of infant stretching nipple with her mouth. The nipples are slightly red, however, mom is a redhead and denies pain unless infant is pulling. No shiny, flaky skin visualized on the nipples. No visuals of a bleb or symptoms of a blocked duct. No redness on the breast and mother has no symptoms of feeling ill. No visual bleb seen and mother denies lumps or painful areas on her breast. Mom states she pumps once a day. Discussed improving milk supply with 8-12 times in 24 hours or breast pumping at least 8 times a day with 1-2 at night. Listened and encouraged mother a lot during our session. She is reminded that her best friend moved to [place], her sorority sisters live away, she doesn't get out much worried about people being near her baby, she is also back working from home remotely and RADHA hasn't helped either. Mother will come back to visit at a later date to check-in and encouraged to call. Mother instructed to call a provider if sleeping, eating, drinking and walking outside or sitting in the sun doesn't help her mood and she needs support. Plan: Mom will work on in a quiet space with less distractions to improve focus and encouraging a deeper latch. She will pump the left side as nurses to encourage milk production. Mom voiced understanding that it may take a few days to get more milk supply built up, to call if the pain is sharp, burning or feels like knives while not when infant is pulling and if her mood becomes a concern to reach out.
== END 2022-03-11 23:59 | disposition home or self-care (01) ==
LOC: ANHOBOP 13:41
PROVIDERS: PCP Family Medicine; Visit Provider Pediatrics
DX: Z39.1 Encounter for care and examination of lactating mother (principal)
CPT/HCPCS: 99213; G0463

== ENCOUNTER 2023-04-13 13:03 | Outpatient (CLI) | payer BC, SELFPAY ==
[2023-04-13 13:19] LABS: Basophils Percent Auto 0.4 % (0.2-1.2); Eosinophils Absolute Auto 0.1 K/mm3 (0-0.3); Hematocrit 36.9 % (37.0-47.0); Immature Granulocyte Absolute 0.03 K/mm3 (0.00-0.031); Immature Granulocyte Percent A 0.4 % (0-0.5); Lymphocytes Absolute Auto 1.97 K/mm3 (0.9-3.2); Lymphocytes Percent Auto 23.7 % (18.3-44.2); Mean Corpuscular HGB Conc 32.5 g/dl (32-36); Mean Corpuscular Hemoglobin 28.4 pg (26-34); Mean Corpuscular Volume 87.2 fl (80-100); Mean Platelet Volume 9.5 fl (7.4-10.4); Monocytes Absolute Auto 0.5 K/mm3 (0.1-0.6); Monocytes Percent Auto 5.5 % (2.6-8.5); Neutrophils Absolute Auto 5.8 K/mm3 (1.3-6.7); Platelet Count Result 320 k/mm3 (150-375); Red Blood Count 4.23 M/mm3 (4.2-5.4); Red Cell Distribution Width 12.9 % (11.5-14.5); White Blood Count 8.3 K/mm3 (4.5-10.0)
[2023-04-13 14:07] LABS: Hepatitis B Surface Antigen Negative (Negative)
[2023-04-13 14:10] LABS: HIV 1/2 Ab P24 Ag Result Negative (Negative)
[2023-04-13 16:10] LABS: Rubella IgG Antibody > 120.0 IU/ML
[2023-04-14 09:18] LABS: Rapid Plasma Reagin Non-Reactive (NonReactive)
[2023-04-18 15:30] LABS: CMV IgG Antibody <0.60 U/mL (<0.60)
== END 2023-04-13 13:04 | disposition home or self-care (01) ==
LOC: ANHLAB 13:03
PROVIDERS: PCP Family Medicine; Visit Provider Obstetrics & Gynecology
DX: N91.0 Primary amenorrhea (principal); N91.2 Amenorrhea, unspecified
CPT/HCPCS: 36415; 84702; 85025; 86592; 86644; 86703; 86747; 86762; 86787; 86850; 86900; 86901; 87086; 87088; 87340; G0432

== ENCOUNTER 2023-07-20 21:24 | Observation (INO) | payer BC, SELFPAY ==
--- NOTE | 2023-07-20 21:24 | OBADM ---
This patient, Hanna Salvador, admitted to the OB room OB Post 116 for observation. PT states she has sharp pain on groin area and bilateral lower abdominal ligamenta pain. PT denies feeling of contractions. feels babies movement. it has been going on for couple of days but felt worse today. Patient/family oriented to hospital policies and general routines including ID bracelet, bed and alarms, visiting hours, pain management, procedures, bathroom and other care routines, personal items, smoking policy, room service/diet, and visiting hours. Patient/Family are encouraged to report perceived risks to care and to ask questions if they do not understand what they are told or what they should do.
[2023-07-20 21:45] VITALS: BMI 39.5
[2023-07-20 22:01] VITALS: BP 116/69; PULSE 86
[2023-07-20 22:10] LABS: Appearance Urine Cloudy (Clear); Bacteria Urine 1+ /hpf; Bilirubin Urine Negative (Negative); Blood Urine Negative (Negative); Color Urine Yellow (Yellow); Glucose Urine UA Negative (Negative); Ketones Urine Negative (Negative); Leukocyte Esterase Ur Negative LEU/UL (Negative); Nitrate Urine Negative (Negative); Non Pathogenic Casts 0-2; Protein Urine Negative (Negative); RBC Urine 0-2 /hpf (0-2); Squamous Epithelial Cell Urine Occasional /hpf (Few); Urobilinogen Urine 0.2 mg/dL (<2.0); pH Urine 7.5 (5.0-9.0)
[2023-07-20 22:13] LABS: Add Urine Microscopic? NO
[2023-07-20] MEDS: ACETAMINOPHEN 500 MG TABLET 1000 MG PO (22:24)
[2023-07-20] MEDS: CYCLOBENZAPRINE HCL 5 MG TABLET PO (22:27)
--- NOTE | 2023-07-21 11:12 | PM.OBTRLD ---
OB - Triage/Final Diagnosis Visit Information Comments/Additional reasons for admission: I have assessed the risk for this patient, Hanna Salvador, and determined that she would benefit from observation care. Evaluation Laboratory results: Laboratory Tests 07/20/23 21:53 Urine Color Yellow Urine Appearance Cloudy H Urine pH 7.5 Ur Specific [place] 1.010 Urine Protein Negative Urine Glucose (UA) Negative Urine Ketones Negative Ur Blood (Man) Negative Urine Nitrate Negative Urine Bilirubin Negative Urine Urobilinogen 0.2 Leukocyte Esterase Rfl Negative Urine RBC 0-2 Urine WBC 6-10 H Ur Squamous Epith Cells Occasional Urine Bacteria 1+ H Urine Casts 0-2 Vital signs: Vital Signs - 24 hr 07/20/23 22:01 07/20/23 21:45 Pulse Rate 86 Blood Pressure 116/69 Oxygen Delivery Room Air Final Diagnosis (1) Abdominal pain affecting : Code(s): O26.899 - Other specified related conditions, unspecified trimester; R10.9 - Unspecified abdominal pain Status: Acute
== END 2023-07-20 23:38 | disposition home or self-care (01) ==
PROVIDERS: Admitting Provider Obstetrics & Gynecology; PCP Family Medicine; Visit Provider Obstetrics & Gynecology
DX: O26.893 Other specified pregnancy related conditions, third trimester (principal); R10.9 Unspecified abdominal pain; Z3A.23 23 weeks gestation of pregnancy
CPT/HCPCS: 81003; 87086; 87088; A9270; G0378; G0379

== ENCOUNTER 2023-10-28 12:17 | Outpatient (RCR) | payer BC, SELFPAY ==
--- NOTE | 2023-10-28 15:10 | PC.NURSE ---
In- 1230 Out- 1430 Reason for visit: Latch issues Meeting with Table Cover Folder today after the Stopper Maker Helper visit earlier today with Dr. Yanez, however; Dr. Nguyễn is the 's Primary Stopper Maker Helper. The parents were also sent over to [place] for Bilirubin checks. History: Mother delivered 37 EGA twins at [facility] 5 days ago. Mother has a history of their now 2 year old for 10 months. Mhx: Hypothyroidism, infertility, IUI pregnancies, AMA, PCOS. Mother takes Synthroid and denies any complications at delivery. History: Mother states infants do not have tongue ties but has problems staying awake to eat. Both infants are here for bilirubin checks related to the jaundice. Parents state that they aim to feeding their twins every 2 hours and achieve every 3 hours most of the time. Twin Luna Baldwin weighs 5-12 (2610gms) and Twin B Emma weighs 4-5 (1966gms) Observations: Mother works well with her infants. Mothers nipples measure 20mm on the right and 24mm on the left. At first, it required more stimulation to wake infants to eagerly open their mouths big enough to accommodate the nipple effectively to breastfeed. We worked with Twin Ajith Carter first. Twin B demonstrated opening her mouth, then would hold the nipple in her mouth. We worked with her on the right/left breast using several positions with and without the other twin. The first latch she transferred 9mls, then stopped, we changed position got her awake, watched for feeding cues, then latched her in a different position and she transferred 11mls. She became sleepy and we stimulated her while working to latch Twin Luna Baldwin to achieved an effective breastfeed maintaining for 15 minutes on the left breast using football positioning. Nicolasa latched easier to the right breast using cross cradle. She would feed for 5-10 min, then stop and go to sleep. We would burp her stimulate her, then she would latch again and did this 3 times until we achieved the 10-15 minute session. Both female born infants had wet diapers before and after the session. Twin A Pre-feed weight: 2610gms Post-feed weight: 2660gms Intake of 50mls Twin B Pre-feed weight: 1966gms Post-feed weight: 2010gms Intake of 44mls Plan of Care: Parents will aim to feed twins every 2 hours to hopefully achieve every 3 hours. Father of the baby plans to bottle feed formula if doesn't go well at any point. Discussed the amounts needed for weight gain, protecting the milk supply with pumping (when infant do not latch or take bottles), reviewed proper use of a pump, flange fit, no pain, empting breast frequently, watching for appropriate poops, pees (at least 6 a day) and good rocking jaw motion with swallowing. Encouraged practicing so the infants gain strength to transfer milk from the breast rather than hold nipple in their mouth as waiting for the bottle drip. LC RN acknowledges their busy life and encouraged them feeding their infants aiming for every 2-3 hours, napping when they can, and resources for assistance if needed. Parents voiced understanding of this information and given an opportunity for clarification. Follow up plans: Parents will be bringing infants to [facility] tomorrow morning 10/29/23 for bilirubin checks and LC will follow up with them then.
== END 2024-01-26 23:59 | disposition home or self-care (01) ==
LOC: ANHOBOP 12:17
PROVIDERS: PCP Family Medicine; Visit Provider Pediatrics
DX: Z39.1 Encounter for care and examination of lactating mother (principal)
CPT/HCPCS: 99205; G0463

== ENCOUNTER 2024-02-15 11:25 | Outpatient (CLI) | payer BC, SELFPAY ==
[2024-02-15 12:12] LABS: Beta HCG Quantitative < 2.39 mIU/ML
== END 2024-02-15 11:26 | disposition home or self-care (01) ==
LOC: ANHLAB 11:26
PROVIDERS: PCP Family Medicine; Visit Provider Obstetrics & Gynecology
DX: Z30.9 Encounter for contraceptive management, unspecified (principal)
CPT/HCPCS: 36415; 84702

== ENCOUNTER 2024-06-29 14:04 | Outpatient (CLI) | payer BC, SELFPAY ==
[2024-06-29 14:25] LABS: Hematocrit 37.5 % (37.0-47.0); Hemoglobin 12.6 g/dL (12.0-15.0); Mean Corpuscular HGB Conc 33.6 g/dl (32-36); Mean Corpuscular Volume 86.4 fl (80-100); Mean Platelet Volume 9.4 fl (7.4-10.4); Platelet Count Result 350 k/mm3 (150-375); Red Blood Count 4.34 M/mm3 (4.2-5.4); Red Cell Distribution Width 12.3 % (11.5-14.5); White Blood Count 9.7 K/mm3 (4.5-10.0)
[2024-06-29 14:46] LABS: Alanine Aminotransferase 19 U/L (6-35); Albumin Level 4.7 g/dL (3.5-5.1); Alkaline Phosphatase 81 U/L (38-126); Anion Gap 11 mmol/L (4-12); Aspartate Amino Transferase 24 U/L (14-36); Bilirubin,Total 0.5 mg/dL (0.2-1.3); Blood Urea Nitrogen 9 mg/dL (7-17); Calcium 8.9 mg/dL (8.4-10.2); Carbon Dioxide 26 mmol/L (22-30); Chloride 99 mmol/L (98-107); Estimated Glomerular Filt Rate > 60; Glucose 86 mg/dL (65-110); Sodium 136 mmol/L (137-145)
[2024-06-29 15:30] LABS: Free T4 Free Thyroxine 1.35 ng/mL (0.78-2.19)
[2024-06-29 15:33] LABS: Thyroid Stimulating Hormone 0.266 uIU/mL (0.465-4.680)
[2024-07-01 05:18] LABS: Triiodothyronine T3 Free 3.6 pg/mL (2.3-4.2)
== END 2024-06-29 14:05 | disposition home or self-care (01) ==
LOC: ANHLAB 14:07
PROVIDERS: PCP Family Medicine; Visit Provider Obstetrics & Gynecology
DX: N92.6 Irregular menstruation, unspecified (principal); Z30.431 Encounter for routine checking of intrauterine contraceptive device
CPT/HCPCS: 36415; 80053; 84439; 84443; 84481; 85027